=== PATIENT | female | born 1975 | race Caucasian/White ===

== ENCOUNTER 2018-05-15 10:21 | Inpatient (IN) | payer OTHER ==
--- NOTE | 2018-05-15 10:47 | ED ---
General Adult HPI - General Chief complaint: Upper Respiratory Infection Stated complaint: flu like symptoms Time Seen by Provider: 05/15/18 10:36 Source: patient, RN notes reviewed Mode of arrival: ambulatory Limitations: no limitations - History of Present Illness Initial comments: Patient's 43-year-old female with no significant past medical history, presented to the emergency room today with chief complaint of cough congestion over the last 9 days. She does admit that she's had some fevers at home. States a week ago she was running 103 temp. States this past few days and low- grade. States she's been using Tylenol/ibuprofen for fever control. She states she did take some cough medication this morning which police has Tylenol in it. Patient does admit to sputum production been green and yellow in color but just a small amount. Patient does admit to increased rhinorrhea. States she's seen some blood coming from the left nostril at times. She denies any other complaints or symptoms. Patient denies any recent shortness of breath, chest pain, back pain, abdominal pain, nausea or vomiting, numbness or tingling , headaches or visual changes, or any other complaints. - Related Data Home Medications Medication Instructions Recorded Confirmed Acetaminophen/Diphenhydramine 1 tab PO HS PRN 05/15/18 05/15/18 [Tylenol PM 500-25mg] Ascorbic Acid [Vitamin C] 1,000 mg PO DAILY 05/15/18 05/15/18 Ibuprofen [Motrin Ib] 400 mg PO Q6HR PRN 05/15/18 05/15/18 Allergies Allergy/AdvReac Type Severity Reaction Status Date / Time No Known Allergies Allergy Verified 05/15/18 11:49 Review of Systems ROS Statement: Those systems with pertinent positive or pertinent negative responses have been documented in the HPI. ROS Other: All systems not noted in ROS Statement are negative. Past Medical History Past Medical History: No Reported History History of Any Multi-Drug Resistant Organisms: None Reported Past Surgical History: Section Past Psychological History: No Psychological Hx Reported Smoking Status: Never smoker Past Alcohol Use History: None Reported Past Drug Use History: None Reported General Exam - General Exam Comments Initial Comments: General: The patient is awake and alert, in no distress, and does not appear acutely ill. Eye: There is normal conjunctiva bilaterally. No signs of icterus. Ears, nose, mouth and throat: There are moist mucous membranes and no oral lesions. Dry blood in the left nostril. Neck: The neck is supple, there is no tenderness or JVD. Cardiovascular: There is a regular rate and rhythm. No murmur, rub or gallop is appreciated. Respiratory: Lungs are clear to auscultation, respirations are non-labored, breath sounds are equal. No wheezes, stridor, rales, or rhonchi. Musculoskeletal: Normal ROM, no tenderness. +. Neurological: A&O x 3. CN II-XII intact, There are no obvious motor or sensory deficits. Coordination appears grossly intact. Speech is normal. Skin: Skin is warm and dry and no rashes or lesions are noted. Psychiatric: Cooperative, appropriate mood & affect, normal judgment. Limitations: no limitations Course Vital Signs 05/15/18 05/15/18 10:28 11:14 Temperature 98.6 F Pulse Rate 96 Respiratory 20 Rate Blood Pressure 131/112 132/85 O2 Sat by Pulse 95 Oximetry Medical Decision Making - Medical Decision Making Patient's chest x-ray does show a right middle lobe and possible left lower lobe infiltrate. Results discussed with patient. Options discussed with patient about admission to the hospital she is agreeable patient started on azithromycin and Rocephin here in the emergency room. At work and cultures currently pending. Case discussed with attending physician Dr. Kaplan who did discuss with admitting physician Dr. Kwon who will accept the patient. - Lab Data Lab Results 05/15/18 05/15/18 Range/Units 11:12 11:12 Urine Color Yellow Urine Appearance Cloudy H (Clear) Urine pH 6.0 (5.0-8.0) Ur Specific [place] 1.019 (1.001-1.035) Urine Protein Trace H (Negative) Urine Glucose (UA) Negative (Negative) Urine Ketones Negative (Negative) Urine Blood Negative (Negative) Urine Nitrite Negative (Negative) Urine Bilirubin Negative (Negative) Urine Urobilinogen 3.0 (<2.0) mg/dL Ur Leukocyte Esterase Negative (Negative) Urine WBC 3 (0-5) /hpf Ur Squamous Epith Cells 41 H (0-4) /hpf Amorphous Sediment Occasional H (None) /hpf Urine Bacteria Rare H (None) /hpf Urine Mucus Rare H (None) /hpf Urine HCG, Qual Not Detected (Not Detectd) Disposition Clinical Impression: CAP (community acquired pneumonia) Disposition: ADMITTED IP TO THIS [facility] Condition: Good Is patient prescribed a controlled substance at d/c from ED?: No Referrals: Alyssa Cheek MD [Primary Care Provider] - 1-2 days Time of Disposition: 12:08
[2018-05-15 11:29] LABS: Amorphous Sediment,Urine Occasional /hpf; Appearance,Urine Cloudy (Clear); Bacteria,Urine Rare /hpf; Bilirubin,Urine Negative (Negative); Blood,Urine Negative (Negative); Color,Urine Yellow; Glucose,Urine (UA) Negative (Negative); Ketones,Urine Negative (Negative); Leukocyte Esterase,Urine Negative (Negative); Mucus,Urine Rare /hpf; Nitrite,Urine Negative (Negative); Protein,Urine Trace (Negative); Specific Gravity,Urine 1.019 (1.001-1.035); Squamous Epithelial Cell,Urine 41 /hpf (0-4)
--- NOTE | 2018-05-15 11:37 | XR ---
EXAMINATION TYPE: XR chest 2V DATE OF EXAM: 05/15/2018 COMPARISON: NONE HISTORY: Flulike symptoms for 9 days with fever and cough. TECHNIQUE: Frontal and lateral views of the chest are obtained. FINDINGS: There is suspicious right upper lobe consolidation with air bronchograms. There is more pa tchy left basilar opacity. No pneumothorax is seen bilaterally. Suspected tiny bilateral pleural effu sions with blunting of bilateral posterior costophrenic angles. The cardiac silhouette size is upper limits of normal. Patient is slightly rotated to the right on current study. The osseous structures are intact. IMPRESSION: Suspicious right upper lobe pneumonic infiltrate. Additional patchy left basilar acute a telectasis and/or infiltrate noted.
[2018-05-15] MEDS ORDERED: IPRATROPIUM-ALBUTEROL 3 ML NEB INHALATION STA (11:57)
[2018-05-15] MEDS ORDERED: AZITHROMYCIN 500 MG in SODIUM CHLORIDE 0.9% 250 ML IVPB STA ×2 (11:57→12:09)
[2018-05-15] MEDS ORDERED: SODIUM CHLORIDE 0.9% 1,000 ML IV STA (12:01)
[2018-05-15] MEDS ORDERED: NALOXONE 0.4 MG/ML 1 ML VIAL IV PRN ×2 (12:09→14:08)
[2018-05-15] MEDS ORDERED: IBUPROFEN 400 MG TAB PO PRN (12:09)
[2018-05-15] MEDS ORDERED: ONDANSETRON 4 MG/2 ML VIAL IVP PRN (12:09)
[2018-05-15 13:03] LABS: Basophils % (A) 0 %; Eosinophils # (A) 0.1 k/uL (0-0.7); Eosinophils % (A) 1 %; HCT 32.8 % (34.0-46.0); HGB 10.9 gm/dL (11.4-16.0); Lymphocytes # (A) 1.2 k/uL (1.0-4.8); Lymphocytes % (A) 12 %; MCH 29.8 pg (25.0-35.0); MCHC 33.3 g/dL (31.0-37.0); MCV 89.5 fL (80.0-100.0); Mean Platelet Volume 7.7; Monocytes # (A) 0.4 k/uL (0-1.0); Monocytes % (A) 4 %; Neutrophils # (A) 8.1 k/uL (1.3-7.7); Neutrophils % (A) 82 %; Platelet Count 269 k/uL (150-450); RBC 3.67 m/uL (3.80-5.40); RDW 14.1 % (11.5-15.5)
[2018-05-15 13:17] LABS: ALT 59 U/L (9-52); AST 35 U/L (14-36); Albumin 3.1 g/dL (3.5-5.0); Alkaline Phosphatase 215 U/L (38-126); Anion Gap 10 mmol/L; Blood Urea Nitrogen 20 mg/dL (7-17); Calcium 9.2 mg/dL (8.4-10.2); Carbon Dioxide 25 mmol/L (22-30); Chloride 105 mmol/L (98-107); Glucose 187 mg/dL (74-99); Potassium 3.4 mmol/L (3.5-5.1); Sodium 140 mmol/L (137-145); Total Bilirubin 0.6 mg/dL (0.2-1.3); Total Protein 6.6 g/dL (6.3-8.2)
[2018-05-15] MEDS: SODIUM CHLORIDE 0.9% 1,000 ML IV SCH ×2 (14:00→21:52)
[2018-05-15] MEDS ORDERED: POTASSIUM CHLORIDE ER 20 MEQ TAB.ER PO STA (14:10)
--- NOTE | 2018-05-15 14:11 | P.HPIM ---
History of Present Illness H&P Date: 05/15/18 The patient is a 43 yo F with no known PMH presented to the ED for fever, chills , and non-productive cough. The patient notes that her symptoms started 10 days ago when she began having subjective fevers and chills. 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 She notes that 3 days after onset of her fevers, she began having a non-productive cough, R sided pleuritic chest pain, and some sinus congestion. She denied any recent travel, SOB, sore throat, headache, neck pain, ear pain, dizziness, LE pain or swelling, abdominal pain, nausea, vomiting, dysuria, visual changes,or myalgias. In the ED, the patient underwent an extensive w/u revealing a RUL pneumonic infiltrate w/ patch L basilar atelectasis/infiltrate, WBC 10, Hgb 10.9, Plt 269 , Cr 0.53, K 3.4, Influenza A and B negative. She is being admitted to the medicine service for further management of community acquired pneumonia. Review of Systems Pertinent positives and negatives as discussed in HPI, a complete review of systems was performed and all other systems are negative. Past Medical History Past Medical History: No Reported History History of Any Multi-Drug Resistant Organisms: None Reported Past Surgical History: Section Past Psychological History: No Psychological Hx Reported Smoking Status: Never smoker Past Alcohol Use History: None Reported Past Drug Use History: None Reported Medications and Allergies Home Medications Medication Instructions Recorded Confirmed Type Acetaminophen/Diphenhydramine 1 tab PO HS PRN 05/15/18 05/15/18 History [Tylenol PM 500-25mg] Ascorbic Acid [Vitamin C] 1,000 mg PO DAILY 05/15/18 05/15/18 History Ibuprofen [Motrin Ib] 400 mg PO Q6HR PRN 05/15/18 05/15/18 History Allergies Allergy/AdvReac Type Severity Reaction Status Date / Time No Known Allergies Allergy Verified 05/15/18 11:49 Physical Exam Vitals: Vital Signs Temp Pulse Resp BP Pulse Ox 05/15/18 12:19 102 H 05/15/18 12:16 18 05/15/18 12:10 96 05/15/18 11:14 132/85 05/15/18 10:28 98.6 F 96 20 131/112 95 Intake and Output 05/14/18 05/15/18 05/15/18 22:59 06:59 14:59 Other: Weight 104.326 kg General: [non toxic], [no distress], [appears at stated age], [obese] Derm: [no unusual rashes/lesions] [no unusual ecchymoses], [warm], [dry] Head: [atraumatic], [normocephalic], [symmetric] Eyes: [EOMI], [no lid lag], [anicteric sclera], [pupils equal round reactive to light] ENT: [Nose and ears atraumatic], [no thrush], [no pharyngeal erythema], no facial tenderness Neck: [No thyromegaly], [no cervical lymphadenopathy], [trachea midline], [ supple] Mouth: [no lip lesion], [mucus membranes moist] Cardiovascular: [S1S2 reg], [no murmur], [positive posterior tibial pulse bilateral], [no edema], [capillary refill less than 2 seconds] Lungs: R sided coarse breath sounds, no rales appreciated, [no accessory muscle use] Abdominal: [soft], [ nontender to palpation], [no guarding], [no appreciable organomegaly], [normal bowel sounds] Ext: [no gross muscle atrophy], [muscle strength 5 out of 5 in all 4 extremities grossly], [no contractures], Neuro: [ CN II-XI grossly intact], [light touch intact all 4 extremities], [ finger to nose within normal limits], no nuchal rigidity Psych: [Alert], [oriented], [appropriate affect] Results CBC & Chem 7: 05/15/18 12:42 05/15/18 12:42 Labs: Abnormal Lab Results - Last 24 Hours (Table) 05/15/18 05/15/18 05/15/18 Range/Units 11:12 12:42 12:42 RBC 3.67 L (3.80-5.40) m/uL Hgb 10.9 L (11.4-16.0) gm/dL Hct 32.8 L (34.0-46.0) % Neutrophils # 8.1 H (1.3-7.7) k/uL Potassium 3.4 L (3.5-5.1) mmol/L BUN 20 H (7-17) mg/dL Glucose 187 H (74-99) mg/dL ALT 59 H (9-52) U/L Alkaline Phosphatase 215 H (38-126) U/L Albumin 3.1 L (3.5-5.0) g/dL Urine Appearance Cloudy H (Clear) Urine Protein Trace H (Negative) Ur Squamous Epith Cells 41 H (0-4) /hpf Amorphous Sediment Occasional H (None) /hpf Urine Bacteria Rare H (None) /hpf Urine Mucus Rare H (None) /hpf Assessment and Plan Plan: Community acquired pnuemonia -C/w Azithromycin and Ceftriaxone -C/w IVF 100 cc/hr -C/w Tylenol prn -Influenza negative Normocytic anemia -Possibly due to acute stressor -Will monitor Hypokalemia -Will replace Hyperglycemia -Check A1C Obese -Will need counseling on lifestyle modifications DVT//GI prophylaxis - Lovenox - No indication for GI prophylaxis The patient is admitted with an anticipated greater than 2 midnight stay for evaluation of Community Acquired pneumonia Surrogate decision-maker: CODE STATUS:Full-code Discussed with: Patient Anticipated discharge date: 05/17/[address]: Home A total of 60 minutes was spent on the care of this complex patient more than 50 % of the time was spent in counseling and care coordination.
[2018-05-15 18:11] VITALS: BMI 39.4
[2018-05-15] MEDS: ACETAMINOPHEN TAB 325 MG TAB PO PRN (21:52)
[2018-05-16] MEDS: ENOXAPARIN 40 MG/0.4 ML SYRINGE SQ SCH (08:24)
[2018-05-16] MEDS: AZITHROMYCIN 500 MG in SODIUM CHLORIDE 0.9% 250 ML IVPB SCH (08:32)
[2018-05-16] MEDS: ACETAMINOPHEN TAB 325 MG TAB PO PRN ×2 (08:32→20:31)
[2018-05-16] MEDS: SODIUM CHLORIDE 0.9% 1,000 ML IV SCH ×2 (10:08→19:18)
[2018-05-16] MEDS ORDERED: ALBUTEROL NEBULIZED 2.5 MG/3 ML INHALATION PRN (11:46)
--- NOTE | 2018-05-16 11:51 | P.PN ---
Subjective Progress Note Date: 05/16/18 Principal diagnosis: pneumonia Patient seen and examined. No acute events overnight. Patient reports improvement in her breathing. Still feels short of breath with exertion. She denies fever, chills, chest pain, palpitations. Looking for to going home for [employer]. at bedside. Objective - Vital Signs Vital signs: Vital Signs Temp 98.9 F 05/16/18 06:23 Pulse 85 05/16/18 06:23 Resp 18 05/16/18 06:23 BP 146/83 05/16/18 06:23 Pulse Ox 95 05/16/18 06:23 Intake & Output 05/15/18 05/16/18 05/16/18 18:59 06:59 18:59 Intake Total 1200 300 Balance 1200 300 Weight 104.326 kg 104.326 kg Intake: Oral 1200 300 Other: Voiding Method Toilet # Voids 3 - Exam General: [non toxic], [appears dyspneic at rest], [appears at stated age] Derm: [warm], [dry] Head: [atraumatic], [normocephalic], [symmetric] Eyes: [EOMI], [no lid lag], [anicteric sclera] Mouth: [no lip lesion], [mucus membranes moist] Cardiovascular: [S1S2 reg], [no murmur], [positive DP pulse bilateral] Lungs: [crackles right-sided with good air entry], [no accessory muscle use] Abdominal: [soft], [ nontender to palpation], [no guarding], [no appreciable organomegaly] Ext: [no gross muscle atrophy], [no edema], [no contractures] Neuro: [no focal neuro deficits] Psych: [Alert], [oriented], [appropriate affect] - Labs CBC & Chem 7: 05/15/18 12:42 05/15/18 12:42 Labs: Abnormal Lab Results - Last 24 Hours (Table) 05/15/18 05/15/18 Range/Units 12:42 12:42 RBC 3.67 L (3.80-5.40) m/uL Hgb 10.9 L (11.4-16.0) gm/dL Hct 32.8 L (34.0-46.0) % Neutrophils # 8.1 H (1.3-7.7) k/uL Potassium 3.4 L (3.5-5.1) mmol/L BUN 20 H (7-17) mg/dL Glucose 187 H (74-99) mg/dL ALT 59 H (9-52) U/L Alkaline Phosphatase 215 H (38-126) U/L Albumin 3.1 L (3.5-5.0) g/dL Assessment and Plan Assessment: Assessment and Plan 1. Community acquired pneumonia: RUL PNA seen on CXR. Patient is afebrile with no leukocytosis. Influenza negative. Latic acid within normal limits. Tylenol PRN for fever. Continue Azithromycin 500 mg IV QD and Ceftriaxone 1000 mg IV QD. Mucinex 1200 mg PO BID. Albuterol neb PRN for SOB/wheezing. Continue NS at 100 cc/h. O2 per NC to maintain O2 sat > 92%. FU BCx and CXR in the AM 2. Anemia: Hg 10.8 Hct 32.8 MCV 89.5 likely due to Fe def. Daily CBC. 3. Hypokalemia: K 3.4 on admission, replaced. FU BMP 4. Hyperglycemia: POC glucose 187. FU A1c 5. Obesity: BMI 39.5. Encourage lifestyle modifications. 6. DVT/GI Prophylaxis: Lovenox 40 mg SUBCUT QD. Patient being treated for community acquired pneumonia. Requires 2 L NC to maintain O2 sat > 92%. Still appears quite dyspnic while resting in bed. Would benefit from 1-2 days of IV antibiotics.
[2018-05-16 12:25] LABS: ALT 44 U/L (9-52); AST 24 U/L (14-36); Albumin 3.1 g/dL (3.5-5.0); Alkaline Phosphatase 183 U/L (38-126); Anion Gap 8 mmol/L; Blood Urea Nitrogen 13 mg/dL (7-17); Calcium 9.1 mg/dL (8.4-10.2); Carbon Dioxide 25 mmol/L (22-30); Chloride 107 mmol/L (98-107); Glucose 179 mg/dL (74-99); Potassium 4.2 mmol/L (3.5-5.1); Sodium 140 mmol/L (137-145); Total Bilirubin 0.4 mg/dL (0.2-1.3); Total Protein 6.6 g/dL (6.3-8.2)
[2018-05-16 12:49] LABS: Basophils % (A) 0 %; Eosinophils # (A) 0.1 k/uL (0-0.7); Eosinophils % (A) 1 %; HCT 33.7 % (34.0-46.0); HGB 10.9 gm/dL (11.4-16.0); Lymphocytes # (A) 1.2 k/uL (1.0-4.8); Lymphocytes % (A) 12 %; MCH 29.7 pg (25.0-35.0); MCHC 32.3 g/dL (31.0-37.0); MCV 92.1 fL (80.0-100.0); Mean Platelet Volume 7.4; Monocytes # (A) 0.3 k/uL (0-1.0); Monocytes % (A) 3 %; Neutrophils % (A) 82 %; Platelet Count 267 k/uL (150-450); RBC 3.66 m/uL (3.80-5.40); RDW 13.9 % (11.5-15.5); WBC 9.7 k/uL (3.8-10.6)
[2018-05-16 20:29] LABS: Hemoglobin A1C 7.1 % (4.0-6.0)
[2018-05-16] MEDS: guaiFENesin 600 MG TABLET.ER PO SCH (21:57)
[2018-05-17] MEDS: SODIUM CHLORIDE 0.9% 1,000 ML IV SCH ×3 (06:32→23:49)
[2018-05-17] MEDS: ENOXAPARIN 40 MG/0.4 ML SYRINGE SQ SCH ×2 (07:57→08:03)
[2018-05-17] MEDS: guaiFENesin 600 MG TABLET.ER PO SCH ×2 (07:57→20:36)
[2018-05-17] MEDS: ACETAMINOPHEN TAB 325 MG TAB PO PRN ×2 (07:58→23:48)
--- NOTE | 2018-05-17 08:04 | XR ---
EXAMINATION TYPE: XR chest 1V DATE OF EXAM: 05/17/2018 COMPARISON: Prior chest x-ray 05/15/2018 HISTORY: Pneumonia TECHNIQUE: Single frontal view of the chest is obtained. FINDINGS: Exam somewhat limited. Pleural parenchymal changes are similar to prior exam. Heart size a ppears somewhat accentuated which may be in part due to technique. Abnormal density seen on prior exa m towards the left lung base is not well seen due to technique. IMPRESSION: Findings may represent pneumonia, there may be parapneumonic effusion. Follow-up to reso lution recommended to exclude underlying mass.
[2018-05-17] MEDS: AZITHROMYCIN 500 MG in SODIUM CHLORIDE 0.9% 250 ML IVPB SCH (08:47)
--- NOTE | 2018-05-17 12:32 | P.PN ---
Subjective Progress Note Date: 05/17/18 Principal diagnosis: Pneumonia Patient seen and examined. No acute events overnight. Patient continues to complain of shortness of breath, worsened with ambulation to the washroom. Also complains of nasal congestion, relieved with Mucinex. She denies any chest pain or palpitations. Chest x-ray ordered this morning shows persistent right upper lobe pneumonia, likely poor inspiratory effort. Objective - Vital Signs Vital signs: Vital Signs Temp 98.2 F 05/17/18 07:00 Pulse 86 05/17/18 07:00 Resp 18 05/17/18 07:00 BP 154/68 05/17/18 07:00 Pulse Ox 94 L 05/17/18 07:00 Intake & Output 05/16/18 05/17/18 05/17/18 18:59 06:59 18:59 Intake Total 1100 1000 Balance 1100 1000 Weight 104.326 kg Intake: Oral 1100 1000 Other: Voiding Method Toilet Toilet # Voids 2 2 # Bowel Movements 1 - Exam General: [non toxic], [appears dyspneic at rest], [appears at stated age] Derm: [warm], [dry] Head: [atraumatic], [normocephalic], [symmetric] Eyes: [EOMI], [no lid lag], [anicteric sclera] Mouth: [no lip lesion], [mucus membranes moist] Cardiovascular: [S1S2 reg], [no murmur], [positive DP pulse bilateral] Lungs: [crackles right-sided with decreased breath sounds], [no accessory muscle use] Abdominal: [soft], [ nontender to palpation], [no guarding], [no appreciable organomegaly] Ext: [no gross muscle atrophy], [no edema], [no contractures] Neuro: [no focal neuro deficits] Psych: [Alert], [oriented], [appropriate affect] - Labs CBC & Chem 7: 05/16/18 11:38 05/16/18 11:38 Labs: Abnormal Lab Results - Last 24 Hours (Table) 05/16/18 05/16/18 05/16/18 Range/Units 11:38 11:38 11:38 RBC 3.66 L (3.80-5.40) m/uL Hgb 10.9 L (11.4-16.0) gm/dL Hct 33.7 L (34.0-46.0) % Neutrophils # 8.0 H (1.3-7.7) k/uL Glucose 179 H (74-99) mg/dL Hemoglobin A1c 7.1 H (4.0-6.0) % Alkaline Phosphatase 183 H (38-126) U/L Albumin 3.1 L (3.5-5.0) g/dL Microbiology - Last 24 Hours (Table) 05/15/18 12:42 Blood Culture - Preliminary Blood No Growth after 24 hours Assessment and Plan Assessment: Assessment and Plan 1. Community acquired pneumonia: RUL PNA seen on CXR. Patient is afebrile with no leukocytosis. Influenza negative. Latic acid within normal limits. Tylenol PRN for fever. Continue Azithromycin 500 mg IV QD and Ceftriaxone 1000 mg IV QD. Mucinex 1200 mg PO BID. Albuterol neb PRN for SOB/wheezing. Continue NS at 100 cc/h. O2 per NC to maintain O2 sat > 92%. BCx prelim negative after 24H. FU BCx and CXR in the AM 2. Anemia: Hg 10.9 Hct 33.7 MCV 92.1 likely due to Fe def. Daily CBC. 4. Diabetes Mellitus: POC glucose 179. A1c 7.1. Advised lifestyle modifications. She will follow up with her PCP for further management. 5. Obesity: BMI 39.5. Encourage lifestyle modifications. 6. DVT/GI Prophylaxis: Lovenox 40 mg SUBCUT QD. Patient being treated for community acquired pneumonia. Saturating 90-92% on RA. Still appears quite dyspnic while resting in bed. Will follow CXR tomorrow morning, possible Pulm consult if worsened. Pending clinical improvement. Likely DC in 1-2 days.
[2018-05-18] MEDS: ENOXAPARIN 40 MG/0.4 ML SYRINGE SQ SCH (07:17)
[2018-05-18] MEDS: guaiFENesin 600 MG TABLET.ER PO SCH ×2 (07:29→20:35)
[2018-05-18] MEDS: ACETAMINOPHEN TAB 325 MG TAB PO PRN ×2 (07:38→22:02)
--- NOTE | 2018-05-18 08:17 | XR ---
EXAMINATION TYPE: XR chest 2V DATE OF EXAM: 05/18/2018 COMPARISON: Prior chest x-ray 05/17/2018 HISTORY: Pneumonia TECHNIQUE: Frontal and lateral views of the chest are obtained. FINDINGS: There is some improvement in aeration in the right upper lobe. No evident pneumothorax. Di fficult to exclude small effusion. Minimal patchy density may be present in the left lower lobe. Hear t size appears enlarged although patient is rotated which may accentuate appearance, lung volumes are low. There is some elevation of the right hemidiaphragm. IMPRESSION: Improvement in aeration. Additional follow-up recommended.
[2018-05-18] MEDS: AZITHROMYCIN 500 MG in SODIUM CHLORIDE 0.9% 250 ML IVPB SCH (08:18)
[2018-05-18] MEDS: SODIUM CHLORIDE 0.9% 1,000 ML IV SCH (11:01)
--- NOTE | 2018-05-18 12:15 | P.PN ---
Subjective Progress Note Date: 05/18/18 Principal diagnosis: Right upper lobe pneumonia Patient seen and examined. No acute events overnight. Patient reports improvement in her breathing since admission, but continues to feel short of breath even at rest. She is saturating low 90s on room air. She denies any chest pain or palpitations. Chest x-ray this morning shows persistent right upper lobe pneumonia with improved aeration. Objective - Vital Signs Vital signs: Vital Signs Temp 98.3 F 05/18/18 07:31 Pulse 80 05/18/18 07:31 Resp 18 05/18/18 07:31 BP 126/83 05/18/18 07:31 Pulse Ox 93 L 05/18/18 07:31 Intake & Output 05/17/18 05/18/18 05/18/18 18:59 06:59 18:59 Intake Total 1100 Balance 1100 Intake: IV 300 Azithromycin 500 mg In 250 Sodium Chloride 0.9% 250 ml @ 250 mls/hr IVPB DAILY KAMALJIT Rx#:[id number] cefTRIAXone 1,000 mg In 50 Sodium Chloride 0.9% 50 ml @ 100 mls/hr IVPB Q24HR KAMALJIT Rx#:[id number] Intake, IV Titration 800 Amount Sodium Chloride 0.9% 1, 800 000 ml @ 100 mls/hr IV . Q10H KAMALJIT Rx#:[id number] Other: Voiding Method Toilet # Voids 2 1 - Exam General: [non toxic], [appears dyspneic at rest], [appears at stated age] Derm: [warm], [dry] Head: [atraumatic], [normocephalic], [symmetric] Eyes: [EOMI], [no lid lag], [anicteric sclera] Mouth: [no lip lesion], [mucus membranes moist] Cardiovascular: [S1S2 reg], [no murmur], [positive DP pulse bilateral] Lungs: [Decreased breath sounds on the right side], [no accessory muscle use] Abdominal: [soft], [ nontender to palpation], [no guarding], [no appreciable organomegaly] Ext: [no gross muscle atrophy], [no edema], [no contractures] Neuro: [no focal neuro deficits] Psych: [Alert], [oriented], [appropriate affect] - Labs CBC & Chem 7: 05/16/18 11:38 05/16/18 11:38 Labs: Microbiology - Last 24 Hours (Table) 05/15/18 12:42 Blood Culture - Preliminary Blood No Growth after 48 hours Assessment and Plan Assessment: Assessment and Plan 1. Community acquired pneumonia: RUL PNA seen on CXR. Patient is afebrile with no leukocytosis. Influenza negative. Latic acid within normal limits. Tylenol PRN for fever. Continue Azithromycin 500 mg IV QD and Ceftriaxone 1000 mg IV QD. Mucinex 1200 mg PO BID. Albuterol neb PRN for SOB/wheezing. DC IVF. O2 per NC to maintain O2 sat > 92%. BCx prelim negative after 48H. Will obtain home O2 test. FU BCx, Echocardiogram, Pulmonology consult 2. Anemia: Hg 10.9 Hct 33.7 MCV 92.1 likely due to Fe def. Daily CBC. 4. Diabetes Mellitus: POC glucose 179. A1c 7.1. Advised lifestyle modifications. She will follow up with her PCP for further management. 5. Obesity: BMI 39.5. Encourage lifestyle modifications. 6. DVT/GI Prophylaxis: Lovenox 40 mg SUBCUT QD. Patient being treated for community acquired pneumonia. Saturating 90-92% on RA. Still appears quite dyspnic while resting in bed. Will follow echocardiogram and pulmonology recommendations. Pending clinical improvement. Likely DC in 1-2 days.
[2018-05-19] MEDS: guaiFENesin 600 MG TABLET.ER PO SCH (08:19)
[2018-05-19] MEDS: ENOXAPARIN 40 MG/0.4 ML SYRINGE SQ SCH (08:19)
--- NOTE | 2018-05-19 08:37 | ECHOF ---
Referral Reason:SOB MEASUREMENTS -------- HEIGHT: 162.6 cm WEIGHT: 104.3 kg BP: RVIDd: 3.4 cm (< 3.3) IVSd: 1.2 cm (0.6 - 1.1) LVIDd: 4.3 cm (3.9 - 5.3) LVPWd: 1.1 cm (0.6 - 1.1) IVSs: 1.9 cm LVIDs: 3.1 cm LVPWs: 1.4 cm LA Diam: 4.3 cm (2.7 - 3.8) Ao Diam: 2.5 cm (2.0 - 3.7) AV Cusp: 1.9 cm (1.5 - 2.6) LA Diam: 4.1 cm (2.7 - 3.8) MV EXCURSION: 14.447 mm (> 18.000) MV EF SLOPE: 69 mm/s (70 - 150) EPSS: 0.4 cm MV E Dustin: 0.56 m/s MV DecT: 267 ms MV A Dustin: 0.82 m/s MV E/A Ratio: 0.69 RAP: 5.00 mmHg RVSP: 15.47 mmHg FINDINGS -------- Sinus rhythm. This was a technically adequate study. LV size, wall thickness and systolic function are normal, with an EF greater than 55%. The left brandie tricular size is normal. The right ventricle is normal in size. The left atrial size is normal. The right atrial size is normal. The aortic valve is trileaflet, and appears structurally normal. No aortic stenosis or regurgitation. Mild mitral regurgitation is present. Mild tricuspid regurgitation present. There is no evidence of pulmonary hypertension. The right v entricular systolic pressure, as measured by Doppler, is 15.47mmHg. There is no pulmonic regurgitation present. The aortic root size is normal. There is a trivial pericardial effusion present. CONCLUSIONS -------- 1. LV size, wall thickness and systolic function are normal, with an EF greater than 55%. 2. The left ventricular size is normal. 3. The right ventricle is normal in size. 4. The left atrial size is normal. 5. The right atrial size is normal. 6. The aortic valve is trileaflet, and appears structurally normal. No aortic stenosis or regurgitati on. 7. Mild mitral regurgitation is present. 8. Mild tricuspid regurgitation present. 9. There is no evidence of pulmonary hypertension. 10. The right ventricular systolic pressure, as measured by Doppler, is 15.47mmHg. 11. There is no pulmonic regurgitation present. 12. The aortic root size is normal. 13. There is a trivial pericardial effusion present. RN ADMISSION: Pina Diaz RDCS
[2018-05-19] MEDS ORDERED: AZITHROMYCIN 500 MG TAB PO SCH (09:00)
--- NOTE | 2018-05-19 11:59 | P.DS ---
Providers Date of admission: 05/15/18 12:05 Expected date of discharge: 05/19/18 Attending physician: Elisa Kwon MD Primary care physician: Alyssa Cheek MD - Discharge Diagnosis(es) (1) Anemia Current Visit: Yes Status: Acute (2) Diabetes mellitus Current Visit: Yes Status: Acute (3) Obesity Current Visit: Yes Status: Acute (4) CAP (community acquired pneumonia) Current Visit: Yes Status: Acute Hospital Course: 43 yo F with no known PMH presented to the ED for fever, chills, and non- productive cough. The patient notes that her symptoms started 10 days ago when she began having subjective fevers and chills. 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 She notes that 3 days after onset of her fevers, she began having a non-productive cough, R sided pleuritic chest pain, and some sinus congestion. She denied any recent travel, SOB, sore throat, headache, neck pain, ear pain, dizziness, LE pain or swelling, abdominal pain, nausea, vomiting, dysuria, visual changes, or myalgias. In the ED, the patient underwent an extensive w/u revealing a RUL pneumonic infiltrate w/ patch L basilar atelectasis/infiltrate, WBC 10, Hgb 10.9, Plt 269 , Cr 0.53, K 3.4, Influenza A and B negative. She is being admitted to the medicine service for further management of community acquired pneumonia. With regard to her pneumonia, patient was afebrile with no leukocytosis. Lactic acid was within normal limits. She was given Tylenol as needed for fever. Patient was started on azithromycin and ceftriaxone IV. She was given Mucinex for for a decongestant. She was given albuterol as needed for shortness of breath or wheezing. She was given oxygen per nasal cannula to maintain oxygen saturation greater than 92% blood cultures were prelim negative at 72 hours at the time of discharge. Patient showed considerable improvement during the next 3 days during her admission. Subsequent chest x-ray showed improvement as well. Patient seen and examined prior to discharge. No acute events overnight. Patient reports great improvement in her breathing. She continues to complain of cough, productive of yellow sputum, mild. Patient is able to ambulate to the washroom and back without feeling short of breath. She denies any chest pain or palpitations. Patient is looking for to going home. General: [non toxic], [appears dyspneic at rest], [appears at stated age], [ saturating 97% on room air] Derm: [warm], [dry] Head: [atraumatic], [normocephalic], [symmetric] Eyes: [EOMI], [no lid lag], [anicteric sclera] Mouth: [no lip lesion], [mucus membranes moist] Cardiovascular: [S1S2 reg], [no murmur], [positive DP pulse bilateral] Lungs: [Decreased breath sounds on the right side with improved air entry], [no accessory muscle use] Abdominal: [soft], [ nontender to palpation], [no guarding], [no appreciable organomegaly] Ext: [no gross muscle atrophy], [no edema], [no contractures] Neuro: [no focal neuro deficits] Psych: [Alert], [oriented], [appropriate affect] Assessment and Plan 1. Community acquired pneumonia: RUL PNA seen on CXR. Patient is afebrile with no leukocytosis. Influenza negative. Latic acid within normal limits. Tylenol PRN for fever. Continue Azithromycin 500 mg IV QD and Ceftriaxone 1000 mg IV QD. Mucinex 1200 mg PO BID. Albuterol neb PRN for SOB/wheezing. DC IVF. O2 per NC to maintain O2 sat > 92%. BCx prelim negative after 72H. 6 minute walk test negative. Echo is completely within normal limits. Will DC home to complete a total of 7 days of Abx. 2. Anemia: Hg 10.9 Hct 33.7 MCV 92.1 likely due to Fe def. Daily CBC. 4. Diabetes Mellitus: POC glucose 183. A1c 7.1. Advised lifestyle modifications. She will follow up with her PCP for further management. 5. Obesity: BMI 39.5. Encourage lifestyle modifications. 6. DVT/GI Prophylaxis: Lovenox 40 mg SUBCUT QD. Patient being treated for community acquired pneumonia. Saturating 97% on RA. She will be discharged today to complete a total of 7 days of antibiotics. Advised to follow-up with PCP within 1-2 days of discharge. Advised to come back to the ED or call 911 for worsening shortness of breath. Patient verbalized understanding of the plan. Pertinent Studies: Chest x-ray Echocardiogram Patient Condition at Discharge: Good Plan - Discharge Summary Discharge Rx Participant: No New Discharge Prescriptions: New guaiFENesin [Mucinex] 1,200 mg PO Q12HR #30 tablet.er Levofloxacin [Levaquin] 750 mg PO DAILY 6 Days #6 tab Continue Acetaminophen/Diphenhydramine [Tylenol PM 500-25mg] 1 tab PO HS PRN PRN Reason: Pain Ibuprofen [Motrin Ib] 400 mg PO Q6HR PRN PRN Reason: Pain Ascorbic Acid [Vitamin C] 1,000 mg PO DAILY Discharge Medication List Acetaminophen/Diphenhydramine [Tylenol PM 500-25mg] 1 tab PO HS PRN 05/15/18 [ History] Ascorbic Acid [Vitamin C] 1,000 mg PO DAILY 05/15/18 [History] Ibuprofen [Motrin Ib] 400 mg PO Q6HR PRN 05/15/18 [History] Levofloxacin [Levaquin] 750 mg PO DAILY 6 Days #6 tab 05/19/18 [Rx] guaiFENesin [Mucinex] 1,200 mg PO Q12HR #30 tablet.er 05/19/18 [Rx] Follow up Appointment(s)/Referral(s): Alyssa Cheek MD [Primary Care Provider] - 1-2 days
[2018-05-19 15:37] VITALS: BP 115/75; PULSE 99; RESP 16; TEMP 98.4
== END 2018-05-19 15:53 | disposition home or self-care (01) | DRG 195 ==
LOC: EC 10:21 → 4MS4W 12:05
PROVIDERS: ADMIT Internal Medicine; ATTEND Internal Medicine
DX: J18.9 Pneumonia, unspecified organism (principal); D64.9 Anemia, unspecified; E11.65 Type 2 diabetes mellitus with hyperglycemia; E61.1 Iron deficiency; E66.9 Obesity, unspecified; E87.6 Hypokalemia; Z68.39 Body mass index [BMI] 39.0-39.9, adult; Z71.3 Dietary counseling and surveillance
CPT/HCPCS: 36415; 71045; 71046; 80053; 81001; 81025; 83036; 83605; 85025; 87040; 87502; 93306; 94640; 94760; 96365; 96367; 99284

== ENCOUNTER → 2018-06-06 | Outpatient (CLI) | payer OTHER ==
--- NOTE | 2018-06-06 10:28 | XR ---
EXAMINATION TYPE: XR chest 2V DATE OF EXAM: 06/06/2018 COMPARISON: 05/18/2018 TECHNIQUE: PA and lateral views submitted. HISTORY: Follow-up pneumonia FINDINGS: Interval marked improvement in areas of pneumonia involving the right upper and lower lobes with some residual perihilar and upper lobe density. Left lung is clear. There is elevation the right hemidiap hragm. Hypertrophic and degenerative change of the spine. No overt failure or pneumothorax. IMPRESSION: 1. Interval marked improvement of the areas of infiltrate involving the right lung with some persiste nt residual density. Follow-up to resolution recommended.
[2018-06-06 11:53] LABS: Cholesterol 252 mg/dL (<200); HDL Cholesterol 40 mg/dL (40-60); LDL Cholesterol,Calculated 172 mg/dL (0-99); Triglycerides 199 mg/dL (<150)
[2018-06-06 18:13] LABS: Progesterone 0.4 ng/mL
== END | disposition home or self-care (01) ==
LOC: RADXRMAIN 10:03
PROVIDERS: ATTEND Family Medicine
DX: J98.4 Other disorders of lung (principal); R91.8 Other nonspecific abnormal finding of lung field; Z00.00 Encounter for general adult medical examination without abnormal findings; E11.9 Type 2 diabetes mellitus without complications; E66.9 Obesity, unspecified; N95.1 Menopausal and female climacteric states
CPT/HCPCS: 71046; 80061; 82670; 82672; 84144

== ENCOUNTER → 2018-06-30 | Outpatient (CLI) | payer OTHER ==
--- NOTE | 2018-06-30 09:40 | XR ---
EXAMINATION TYPE: XR chest 2V DATE OF EXAM: 06/30/2018 COMPARISON: 06/06/2018 TECHNIQUE: PA and lateral views submitted. HISTORY: Follow-up abnormal x-ray FINDINGS: There is persistent right perihilar and lower lobe consolidation. Left lung is clear. No pneumothorax . No interstitial edema. Heart size normal. Degenerative changes of the spine noted. IMPRESSION: 1. Persistent right perihilar and lower lobe area of atelectasis or infiltrate.
--- NOTE | 2018-06-30 10:16 | MM ---
Reason for exam: screening (asymptomatic). Baseline mammogram. History: Patient had first child at age 33. Took hormonal contraceptives beginning at age 27. Physical Findings: Nurse did not find any significant physical abnormalities on exam. MG Screening Mammo w CAD Bilateral CC and MLO view(s) were taken. There are scattered fibroglandular densities. There is no discrete abnormality. These results were verbally communicated with the patient and result sheet given to the patient on 06/30/18. ASSESSMENT: Negative, BI-RAD 1 RECOMMENDATION: Routine screening mammogram of both breasts in 1 year.
== END | disposition home or self-care (01) ==
LOC: RADMAMWWP 09:17
PROVIDERS: ATTEND Family Medicine
DX: Z12.31 Encounter for screening mammogram for malignant neoplasm of breast (principal); J18.9 Pneumonia, unspecified organism
CPT/HCPCS: 71046; 77067

== ENCOUNTER → 2018-07-21 | Outpatient (CLI) | payer OTHER ==
--- NOTE | 2018-07-21 14:38 | XR ---
EXAMINATION TYPE: XR chest 2V DATE OF EXAM: 07/21/2018 COMPARISON: 06/30/2018 TECHNIQUE: PA and lateral views submitted. HISTORY: Cough possible pneumonia FINDINGS: The lungs are clear and there is no pneumothorax, pleural effusion, or focal pneumonia. No focal in filtrate on today's exam. Hypertrophic and degenerative change of the spine. IMPRESSION: 1. Interval improvement in the chest with near complete resolution of right-sided infiltrate.
== END | disposition home or self-care (01) ==
LOC: RADXRMAIN 13:21
PROVIDERS: ATTEND Family Medicine
DX: J18.9 Pneumonia, unspecified organism (principal)
CPT/HCPCS: 71046

== ENCOUNTER → 2018-08-30 | Outpatient (CLI) | payer OTHER ==
[2018-08-30 12:08] LABS: Basophils % (A) 1 %; Eosinophils # (A) 0.1 k/uL (0-0.7); Eosinophils % (A) 1 %; HCT 42.8 % (34.0-46.0); HGB 14.3 gm/dL (11.4-16.0); Lymphocytes # (A) 1.6 k/uL (1.0-4.8); Lymphocytes % (A) 31 %; MCH 28.7 pg (25.0-35.0); MCHC 33.4 g/dL (31.0-37.0); MCV 85.8 fL (80.0-100.0); Mean Platelet Volume 7.3; Monocytes # (A) 0.4 k/uL (0-1.0); Monocytes % (A) 8 %; Neutrophils # (A) 2.8 k/uL (1.3-7.7); Neutrophils % (A) 55 %; Platelet Count 231 k/uL (150-450); RBC 4.99 m/uL (3.80-5.40); RDW 13.1 % (11.5-15.5); WBC 5.1 k/uL (3.8-10.6)
[2018-08-30 16:40] LABS: Hepatitis A Antibody IgM Non-Reactive (Non-Reactive); Hepatitis B Core IgM Non-Reactive (Non-Reactive)
[2018-08-30 16:57] LABS: Albumin/Globulin Ratio 2.38 (1.60-3.17); Calcium 10.8 mg/dL (8.7-10.3); Globulin 2.1 g/dL (1.6-3.3); Potassium 4.5 mmol/L (3.5-5.5); Total Bilirubin 0.7 mg/dL (0.2-1.2); Total Protein 7.1 g/dL (6.2-8.2)
[2018-08-30 19:09] LABS: Hemoglobin A1C 5.4 % (4.0-6.0)
== END | disposition home or self-care (01) ==
LOC: LABWHC1 10:14
PROVIDERS: ATTEND Family Medicine
DX: Z00.00 Encounter for general adult medical examination without abnormal findings (principal); E11.9 Type 2 diabetes mellitus without complications; E78.5 Hyperlipidemia, unspecified; N95.1 Menopausal and female climacteric states
CPT/HCPCS: 36415; 80053; 80061; 80074; 82043; 82570; 83036; 85025

== ENCOUNTER 2018-09-28 15:55 | Emergency (ER) | payer OTHER ==
[2018-09-28 16:06] VITALS: TEMP 98.7
--- NOTE | 2018-09-28 16:44 | ED ---
General Adult HPI - General Chief complaint: Chest Pain Stated complaint: CHEST DISCOMFORT Time Seen by Provider: 09/28/18 16:00 Source: patient, RN notes reviewed Mode of arrival: wheelchair Limitations: no limitations - History of Present Illness Initial comments: This is a 43-year-old female presents emergency department stating that she had pneumonia in April nerves April she's had some sharp chest pains mostly on the right side. Patient states starting yesterday she started having some of the same sharp pains on the left side. Patient denies any shortness of breath or difficulty breathing. Patient denies any diaphoretic episodes. Patient denies any nausea. Patient denies any lightheadedness dizziness or near syncopal episode. Patient states the pains usually are much worse when she takes deep breath. Patient denies any abdominal pain patient denies nausea vomiting diarrhea. Patient denies any swelling to legs or calf tenderness. - Related Data Home Medications Medication Instructions Recorded Confirmed Ascorbic Acid [Vitamin C] 1,000 mg PO DAILY 05/15/18 09/28/18 Acetaminophen [Tylenol] 325 mg PO Q6HR 09/28/18 09/28/18 Ibuprofen [Motrin Ib] 200 mg PO Q8H 09/28/18 09/28/18 Previous Rx's Medication Instructions Recorded Ibuprofen [Motrin] 600 mg PO Q6HR PRN #20 tab 09/28/18 Allergies Allergy/AdvReac Type Severity Reaction Status Date / Time No Known Allergies Allergy Verified 09/28/18 16:24 Review of Systems ROS Statement: Those systems with pertinent positive or pertinent negative responses have been documented in the HPI. ROS Other: All systems not noted in ROS Statement are negative. Past Medical History Past Medical History: No Reported History, Diabetes Mellitus History of Any Multi-Drug Resistant Organisms: None Reported Past Surgical History: Section Past Psychological History: No Psychological Hx Reported Smoking Status: Never smoker - Past Family History Father Family Medical History: Diabetes Mellitus General Exam - General Exam Comments Initial Comments: GENERAL: Patient is well-developed and well-nourished. Patient is nontoxic and well- hydrated and is in no acute distress. ENT: Neck is soft and supple. No significant lymphadenopathy is noted. Oropharynx is clear. Moist mucous membranes. Neck has full range of motion without e liciting any pain. EYES: The sclera were anicteric and conjunctiva were pink and moist. Extraocular movements were intact and pupils were equal round and reactive to light. Eyelids were unremarkable. PULMONARY: Unlabored respirations. Good breath sounds bilaterally. No audible rales rhonchi or wheezing was noted. CARDIOVASCULAR: There is a regular rate and rhythm without any murmurs gallops or rubs. ABDOMEN: Soft and nontender with normal bowel sounds. No palpable organomegaly was n oted. There is no palpable pulsatile mass. SKIN: Skin is clear with no lesions or rashes and otherwise unremarkable. NEUROLOGIC: Patient is alert and oriented x3. Cranial nerves II through XII are grossly intact. Motor and sensory are also intact. Normal speech, volume and content. Symmetrical smile. MUSCULOSKELETAL: Normal extremities with adequate strength and full range of motion. No lower extremity swelling or edema. No calf tenderness. LYMPHATICS: No significant lymphadenopathy is noted PSYCHIATRIC: Normal psychiatric evaluation. Limitations: no limitations Course Vital Signs 09/28/18 09/28/18 09/28/18 16:04 16:30 17:00 Temperature 98.7 F Pulse Rate 67 65 Respiratory 16 18 16 Rate Blood Pressure 145/85 127/71 O2 Sat by Pulse 95 96 Oximetry 09/28/18 09/28/18 09/28/18 17:30 18:00 18:10 Temperature Pulse Rate 64 61 53 L Respiratory 16 17 17 Rate Blood Pressure 139/79 108/76 115/71 O2 Sat by Pulse 97 97 98 Oximetry Medical Decision Making - Medical Decision Making EKG shows normal sinus rhythm at 62 bpm WA interval 262 QRS is 82 QT interval 46 QTC is 412. Patient's EKG shows no ST segment elevation or depression no T- wave abnormalities are noted. Chest x-ray showed no acute abnormality. I will begin the room patient states she hasn't had any episodes last takes deep breath - Lab Data Result diagrams: 09/28/18 17:30 09/28/18 17:30 Lab Results 09/28/18 09/28/18 09/28/18 Range/Units 17:30 17:30 17:30 WBC 6.4 (3.8-10.6) k/uL RBC 4.83 (3.80-5.40) m/uL Hgb 14.1 (11.4-16.0) gm/dL Hct 41.5 (34.0-46.0) % MCV 85.8 (80.0-100.0) fL MCH 29.1 (25.0-35.0) pg MCHC 33.9 (31.0-37.0) g/dL RDW 13.5 (11.5-15.5) % Plt Count 237 (150-450) k/uL Neutrophils % 69 % Lymphocytes % 20 % Monocytes % 6 % Eosinophils % 2 % Basophils % 1 % Neutrophils # 4.4 (1.3-7.7) k/uL Lymphocytes # 1.3 (1.0-4.8) k/uL Monocytes # 0.4 (0-1.0) k/uL Eosinophils # 0.1 (0-0.7) k/uL Basophils # 0.0 (0-0.2) k/uL PT 10.0 (9.0-12.0) sec INR 0.9 (<1.2) APTT 25.0 (22.0-30.0) sec Sodium 142 (137-145) mmol/L Potassium 4.0 (3.5-5.1) mmol/L Chloride 109 H (98-107) mmol/L Carbon Dioxide 24 (22-30) mmol/L Anion Gap 9 mmol/L BUN 16 (7-17) mg/dL Creatinine 0.57 (0.52-1.04) mg/dL Est GFR (CKD-EPI)AfAm >90 (>60 ml/min/1.73 sqM) Est GFR (CKD-EPI)NonAf >90 (>60 ml/min/1.73 sqM) Glucose 95 (74-99) mg/dL Calcium 10.8 H (8.4-10.2) mg/dL Magnesium 2.1 (1.6-2.3) mg/dL Total Bilirubin 0.4 (0.2-1.3) mg/dL AST 23 (14-36) U/L ALT 47 (9-52) U/L Alkaline Phosphatase 95 (38-126) U/L Troponin I (0.000-0.034) ng/mL Total Protein 7.7 (6.3-8.2) g/dL Albumin 4.8 (3.5-5.0) g/dL 09/28/18 Range/Units 17:30 WBC (3.8-10.6) k/uL RBC (3.80-5.40) m/uL Hgb (11.4-16.0) gm/dL Hct (34.0-46.0) % MCV (80.0-100.0) fL MCH (25.0-35.0) pg MCHC (31.0-37.0) g/dL RDW (11.5-15.5) % Plt Count (150-450) k/uL Neutrophils % % Lymphocytes % % Monocytes % % Eosinophils % % Basophils % % Neutrophils # (1.3-7.7) k/uL Lymphocytes # (1.0-4.8) k/uL Monocytes # (0-1.0) k/uL Eosinophils # (0-0.7) k/uL Basophils # (0-0.2) k/uL PT (9.0-12.0) sec INR (<1.2) APTT (22.0-30.0) sec Sodium (137-145) mmol/L Potassium (3.5-5.1) mmol/L Chloride (98-107) mmol/L Carbon Dioxide (22-30) mmol/L Anion Gap mmol/L BUN (7-17) mg/dL Creatinine (0.52-1.04) mg/dL Est GFR (CKD-EPI)AfAm (>60 ml/min/1.73 sqM) Est GFR (CKD-EPI)NonAf (>60 ml/min/1.73 sqM) Glucose (74-99) mg/dL Calcium (8.4-10.2) mg/dL Magnesium (1.6-2.3) mg/dL Total Bilirubin (0.2-1.3) mg/dL AST (14-36) U/L ALT (9-52) U/L Alkaline Phosphatase (38-126) U/L Troponin I <0.012 (0.000-0.034) ng/mL Total Protein (6.3-8.2) g/dL Albumin (3.5-5.0) g/dL Disposition Clinical Impression: Pleuritic chest pain Disposition: HOME SELF-CARE Condition: Good Instructions (If sedation given, give patient instructions): Pleurisy (ED) Prescriptions: Ibuprofen [Motrin] 600 mg PO Q6HR PRN #20 tab PRN Reason: For pain Is patient prescribed a controlled substance at d/c from ED?: No Referrals: Ham,Alyssa, MD [Primary Care Provider] - 1-2 days Time of Disposition: 19:11
[2018-09-28 17:39] LABS: Basophils % (A) 1 %; Eosinophils # (A) 0.1 k/uL (0-0.7); Eosinophils % (A) 2 %; HCT 41.5 % (34.0-46.0); HGB 14.1 gm/dL (11.4-16.0); Lymphocytes # (A) 1.3 k/uL (1.0-4.8); Lymphocytes % (A) 20 %; MCH 29.1 pg (25.0-35.0); MCHC 33.9 g/dL (31.0-37.0); MCV 85.8 fL (80.0-100.0); Mean Platelet Volume 7.8; Monocytes # (A) 0.4 k/uL (0-1.0); Monocytes % (A) 6 %; Neutrophils # (A) 4.4 k/uL (1.3-7.7); Neutrophils % (A) 69 %; Platelet Count 237 k/uL (150-450); RBC 4.83 m/uL (3.80-5.40); RDW 13.5 % (11.5-15.5); WBC 6.4 k/uL (3.8-10.6)
[2018-09-28 17:52] LABS: ALT 47 U/L (9-52); AST 23 U/L (14-36); Albumin 4.8 g/dL (3.5-5.0); Alkaline Phosphatase 95 U/L (38-126); Anion Gap 9 mmol/L; Blood Urea Nitrogen 16 mg/dL (7-17); Calcium 10.8 mg/dL (8.4-10.2); Carbon Dioxide 24 mmol/L (22-30); Chloride 109 mmol/L (98-107); Glucose 95 mg/dL (74-99); INR 0.9 (<1.2); Magnesium 2.1 mg/dL (1.6-2.3); Sodium 142 mmol/L (137-145); Total Bilirubin 0.4 mg/dL (0.2-1.3); Total Protein 7.7 g/dL (6.3-8.2)
--- NOTE | 2018-09-28 18:09 | XR ---
EXAMINATION TYPE: XR chest 2V DATE OF EXAM: 09/28/2018 COMPARISON: 07/21/2018 HISTORY: Chest pain TECHNIQUE: Frontal and lateral views of the chest are obtained. FINDINGS: Heart and mediastinum are normal. Lungs are clear of infiltrate. There is small linear den sity in the right lower lobe. Diaphragm is normal. Bony thorax is intact. IMPRESSION: Minimal subsegmental atelectasis right lower lobe is a change compared to old exam..
[2018-09-28 19:29] VITALS: BP 109/66; PULSE 54; RESP 18
== END 2018-09-28 19:26 | disposition home or self-care (01) ==
LOC: EC 15:55
DX: R07.81 Pleurodynia (principal); Z79.891 Long term (current) use of opiate analgesic; Z79.1 Long term (current) use of non-steroidal anti-inflammatories (NSAID)
CPT/HCPCS: 36415; 71046; 80053; 83735; 84484; 85025; 85610; 85730; 93005; 99285